=== PATIENT | female | born 1995 | race Caucasian/White ===

== ENCOUNTER 2016-08-05 17:24 | Emergency (ER) | payer OTHER ==
[2016-08-05 17:36] VITALS: RESP 16
[2016-08-05] MEDS ORDERED: LORazepam 2 MG/ML INJ IVP ONE (17:46)
[2016-08-05] MEDS ORDERED: ONDANSETRON 4 MG/2 ML VIAL IVP ONE (17:46)
[2016-08-05] MEDS ORDERED: NS 1,000 ML IV ONE ×2 (17:46)
--- NOTE | 2016-08-05 17:47 | EDPHY ---
H & P Time Seen by Provider: 08/05/16 17:34 HPI/ROS: CHIEF COMPLAINT: Nausea HISTORY OF PRESENT ILLNESS: Patient started getting sick less than an hour ago. About 30-45 minutes ago she has had severe nausea and feeling like she wants to vomit. Not associated with abdominal pain or urinary symptoms or vaginal bleeding. Associated with some chest tightness and tightness in the back of her neck and some tingling in her extremities. Symptoms are severe. REVIEW OF SYSTEMS: Eye: no change in vision ENT: no sore throat Cardiac: no chest pain or syncope Pulmonary: no cough or SOB Abdomen: HPI Musculoskeletal: no back pain Skin: no rash Neuro: no headache Constitutional: no fever : no urinary symptoms A comprehensive 10 point review of systems is otherwise negative aside from elements mentioned in the history of present illness. PAST MEDICAL HISTORY: Negative Social history: No alcohol or drugs General Appearance: Alert and conversant, cooperative. Eyes: No scleral icterus. ENT, Mouth: Normal mucous membranes. Respiratory: Normal respiratory effort, breath sounds equal, lungs are clear to auscultation. Cardiovascular: Regular rate and rhythm. Gastrointestinal: Abdomen is soft and non tender. Neurological: Alert and oriented x3. Normally conversant. Face symmetric, normal movement and sensation in all extremities. Skin: Warm and dry, no rashes. Musculoskeletal: No peripheral edema and no joint swelling. Psychiatric: Anxious, hyperventilating. Emergency Department course/MDM: Clinically likely seems to be an acute gastrointestinal illness company by hyperventilation. Zofran 4 g IV, normal saline hydration, Ativan 0.5 mg IV. 1835: Calmer no nausea. Results discussed. 2025: Feels better once discharge, I think that is reasonable. Smoking Status: Never smoked Constitutional: Initial Vital Signs Temperature (C) 36.2 C 08/05/16 17:25 Heart Rate 74 08/05/16 17:25 Respiratory Rate 16 08/05/16 17:25 Blood Pressure 121/87 H 08/05/16 17:25 O2 Sat (%) 98 08/05/16 17:25 O2 Delivery Mode Room Air Allergies/Adverse Reactions: No Known Allergies Allergy (Verified 08/05/16 17:34) Home Medications: Medication Instructions Recorded NK [No Known Home Meds] 08/11/15 Medical Decision Making - Diagnostics EKG Interpretation: 12-lead EKG interpreted by me; official reading is in trace master. My interpretation is sinus rhythm at 65 otherwise normal. Differential Diagnosis: Differential diagnosis considered for nausea and vomiting including but not limited to gastroenteritis, gastritis, appendicitis, and medication side effect. - Data Points Laboratory Results: Laboratory Results 08/05/16 17:50 08/05/16 17:50 08/05/16 08/05/16 08/05/16 17:50 17:50 17:50 WBC 10.43 10^3/uL H 10^3/uL (3.80-9.50) RBC 4.71 10^6/uL 10^6/uL (4.18-5.33) Hgb 14.3 g/dL g/dL (12.6-16.3) Hct 40.9 % % (38.0-47.0) MCV 86.8 fL fL (81.5-99.8) MCH 30.4 pg pg (27.9-34.1) MCHC 35.0 g/dL g/dL (32.4-36.7) RDW 12.6 % % (11.5-15.2) Plt Count 218 10^3/uL 10^3/uL (150-400) MPV 10.9 fL fL (8.7-11.7) Neut % (Auto) 61.1 % % (39.3-74.2) Lymph % (Auto) 30.3 % % (15.0-45.0) [place] % (Auto) 7.2 % % (4.5-13.0) Eos % (Auto) 0.7 % % (0.6-7.6) Baso % (Auto) 0.4 % % (0.3-1.7) Nucleat RBC Rel Count 0.0 % % (0.0-0.2) Absolute Neuts (auto) 6.38 10^3/uL 10^3/uL (1.70-6.50) Absolute Lymphs (auto) 3.16 10^3/uL H 10^3/uL (1.00-3.00) Absolute Monos (auto) 0.75 10^3/uL 10^3/uL (0.30-0.80) Absolute Eos (auto) 0.07 10^3/uL 10^3/uL (0.03-0.40) Absolute Basos (auto) 0.04 10^3/uL 10^3/uL (0.02-0.10) Absolute Nucleated RBC 0.00 10^3/uL 10^3/uL (0-0.01) Immature Gran % 0.3 % % (0.0-1.1) Immature Gran # 0.03 10^3/uL 10^3/uL (0.00-0.10) Sodium 138 mEq/L mEq/L (134-144) Potassium 4.1 mEq/L mEq/L (3.5-5.2) Chloride 106 mEq/L mEq/L (97-110) Carbon Dioxide 19 mEq/l L mEq/l (22-31) Anion Gap 13 mEq/L mEq/L (8-16) BUN 12 mg/dL mg/dL (7-23) Creatinine 0.7 mg/dL mg/dL (0.6-1.0) Estimated GFR > 60 Glucose 88 mg/dL mg/dL (70-100) Calcium 9.7 mg/dL mg/dL (8.5-10.4) Beta HCG, Qual NEGATIVE Medications Given: Discontinued Medications Sodium Chloride (Ns) 1,000 mls @ 0 mls/hr IV ONCE ONE PRN Reason: Wide Open Stop: 08/05/16 17:47 Last Admin: 08/05/16 17:52 Dose: 1,000 mls Sodium Chloride (Ns) 1,000 mls @ 0 mls/hr IV ONCE ONE PRN Reason: Wide Open Stop: 08/05/16 17:47 Last Admin: 08/05/16 18:36 Dose: 1,000 mls Lorazepam (Ativan Injection) 0.5 mg IVP EDNOW ONE Stop: 08/05/16 17:47 Last Admin: 08/05/16 18:01 Dose: 0.5 mg Ondansetron HCl (Zofran) 4 mg IVP EDNOW ONE Stop: 08/05/16 17:47 Last Admin: 08/05/16 18:01 Dose: 4 mg Departure - Departure Disposition: Home, Routine, Self-Care Clinical Impression: Hyperventilation Nausea & vomiting Qualifiers: Vomiting type: unspecified Vomiting Intractability: non-intractable Qualified Code(s): R11.2 - Nausea with vomiting, unspecified Condition: Good Instructions: Hyperventilation (ED), Acute Nausea and Vomiting (ED) Referrals: Jaylene Jim PA [Primary Care Provider] - As per Instructions
[2016-08-05 18:06] LABS: % IMMATURE GRANULYOCYTES 0.3 % (0.0-1.1); ABSOLUTE IMMATURE GRANULOCYTES 0.03 10^3/uL (0.00-0.10); ADD DIFF? NO; ADD MORPH? NO; ADD SCAN? NO; ATYPICAL LYMPHOCYTE FLAG 20 (0-99); FRAGMENT RBC FLAG 0 (0-99); HEMATOCRIT 40.9 % (38.0-47.0); HEMOGLOBIN 14.3 g/dL (12.6-16.3); LEFT SHIFT FLG 0 (0-99); LIPEMIA HEMOLYSIS FLAG 90 (0-99); MEAN CELL HEMOGLOBIN 30.4 pg (27.9-34.1); MEAN CELL VOLUME 86.8 fL (81.5-99.8); MEAN PLATELET VOLUME 10.9 fL (8.7-11.7); PLATELET CLUMPS FLAG 0 (0-99); PLATELET COUNT 218 10^3/uL (150-400); RED BLOOD CELL COUNT 4.71 10^6/uL (4.18-5.33); RED CELL DISTRIBUTION WIDTH 12.6 % (11.5-15.2)
[2016-08-05 18:15] LABS: ANION GAP 13 mEq/L (8-16); CALCIUM 9.7 mg/dL (8.5-10.4); CARBON DIOXIDE 19 mEq/l (22-31); CHLORIDE 106 mEq/L (97-110); CREATININE 0.7 mg/dL (0.6-1.0); GLOMERULAR FILTRATION RATE > 60; GLUCOSE 88 mg/dL (70-100); POTASSIUM 4.1 mEq/L (3.5-5.2); SODIUM 138 mEq/L (134-144)
--- NOTE | 2016-08-05 18:31 | CPEKG ---
Heart Rate: 65 RR Interval: 923 P-R Interval: 144 QRSD Interval: 74 QT Interval: 432 QTC Interval: 450 P [place]: -52 QRS [place]: 59 T Wave [place]: 23 EKG Severity - OTHERWISE NORMAL ECG - EKG Impression: SINUS OR ECTOPIC ATRIAL RHYTHM Electronically Signed By: Douglas Browning 05-Aug-2016 18:34:29
[2016-08-05] MEDS ORDERED: ONDANSETRON 4MG PREPACK#2 BTL TAKEHOME ONE ×2 (20:26→20:27)
[2016-08-05 20:54] VITALS: BP 106/54; PULSE 78; TEMP 98.3; O2SAT 95
== END 2016-08-05 20:54 | disposition home or self-care (01) ==
DX: R06.4 Hyperventilation (principal); R11.2 Nausea with vomiting, unspecified
CPT/HCPCS: 96374; J2060; J2405

== ENCOUNTER 2018-08-04 08:02 | Emergency (ER) | payer OTHER ==
--- NOTE | 2018-08-04 09:09 | EDPHY ---
H & P Stated Complaint: CP Time Seen by Provider: 08/04/18 08:54 HPI/ROS: CHIEF COMPLAINT: Left-sided chest pain radiating to left upper extremity HISTORY OF PRESENT ILLNESS: 22-year-old female presents with left-sided chest pain. She was lying in bed, awoke and noticed left-sided neck pain. The pain radiated up to her jaw and, into her left upper chest and down her left arm. She was screaming in pain and looked pale, according to her boyfriend. On EMS arrival, VS stable and she was given ketamine 15 mg IV. Symptoms have now completely resolved. No history of prior similar symptoms. No recent URI or recent injury. REVIEW OF SYSTEMS: complete 10 point ROS reviewed and is negative except for the noted elements in the HPI - Personal History LMP (Females 10-55): Unknown Current Tetanus Diphtheria and Acellular Pertussis (TDAP): Unsure - Medical/Surgical History Hx Asthma: No Hx Chronic Respiratory Disease: No Hx Diabetes: No Hx Cardiac Disease: No Hx Renal Disease: No Hx Cirrhosis: No Hx Alcoholism: No Hx HIV/AIDS: No Hx Splenectomy or Spleen Trauma: No Other PMH: Surgery: hematoma on thigh. previous opiate OD - Social History Smoking Status: Never smoked - Physical Exam Exam: General Appearance: Alert, pleasant Eyes: Pupils equal and round, no conjunctival pallor or injection ENT, Mouth: Mucous membranes moist Neck: Normal inspection, no tenderness, range of motion without pain Respiratory: Normal inspection, no chest wall tenderness, Lungs are clear to auscultation Cardiovascular: Regular rate and rhythm Gastrointestinal: Abdomen is soft and nontender Neurological: A&O, nonfocal, normal gait Skin: Warm and dry, no rash Extremities: Left upper extremity-normal inspection, range of motion without pain Vascular: 2+ radial pulses Psychiatric: Mood and affect normal Constitutional: Initial Vital Signs Temperature (C) 36.5 C 08/04/18 08:19 Heart Rate 76 08/04/18 08:19 Respiratory Rate 16 08/04/18 08:19 Blood Pressure 134/97 H 08/04/18 08:19 O2 Sat (%) 93 08/04/18 08:19 O2 Delivery Mode Room Air Allergies/Adverse Reactions: No Known Allergies Allergy (Verified 08/05/16 17:34) Home Medications: Medication Instructions Recorded NK [No Known Home Meds] 08/11/15 Medical Decision Making - Diagnostics EKG Interpretation: EKG interpretedby wa reveals NSR, nl axis/interval, no ST/T changes. Interpretation: normal EKG ED Course/Re-evaluation: This patient presents after an episode of severe left-sided chest pain, radiating to the left arm and neck, upon awakening this am. Currently asymptomatic and physical exam is normal. Stat EKG reveals no evidence of ischemia or dysrhythmia. Chest x-ray declined by the patient. Clearly understands the limitations of cp dx without CXR. Unclear etiology of sx, ? musculoskeletal, cervical radiculopathy. Will obs. Pt remained asymptomatic throughout her ED stay. PERCscore 0; can safely exclude PE. No evidence of ACS, given young age, no RF and nl EKG. Warning signs discussed. Will return for recurrent sx. F/U PCP. Differential Diagnosis: includes though not limited to ACS, PE, PTX, cervical radiculopathy, GI causes, musculoskeletal - Data Points Laboratory Results: Laboratory Results 08/04/18 08:17 08/04/18 08:17 08/04/18 08/04/18 08:17 08:17 WBC 9.94 10^3/uL H 10^3/uL (3.80-9.50) RBC 4.83 10^6/uL 10^6/uL (4.18-5.33) Hgb 14.7 g/dL g/dL (12.6-16.3) Hct 42.4 % % (38.0-47.0) MCV 87.8 fL fL (81.5-99.8) MCH 30.4 pg pg (27.9-34.1) MCHC 34.7 g/dL g/dL (32.4-36.7) RDW 12.6 % % (11.5-15.2) Plt Count 206 10^3/uL 10^3/uL (150-400) MPV 12.3 fL H fL (8.7-11.7) Neut % (Auto) 48.9 % % (39.3-74.2) Lymph % (Auto) 40.2 % % (15.0-45.0) [place] % (Auto) 9.0 % % (4.5-13.0) Eos % (Auto) 1.2 % % (0.6-7.6) Baso % (Auto) 0.5 % % (0.3-1.7) Nucleat RBC Rel Count 0.0 % % (0.0-0.2) Absolute Neuts (auto) 4.86 10^3/uL 10^3/uL (1.70-6.50) Absolute Lymphs (auto) 4.00 10^3/uL H 10^3/uL (1.00-3.00) Absolute Monos (auto) 0.89 10^3/uL H 10^3/uL (0.30-0.80) Absolute Eos (auto) 0.12 10^3/uL 10^3/uL (0.03-0.40) Absolute Basos (auto) 0.05 10^3/uL 10^3/uL (0.02-0.10) Absolute Nucleated RBC 0.00 10^3/uL 10^3/uL (0-0.01) Immature Gran % 0.2 % % (0.0-1.1) Immature Gran # 0.02 10^3/uL 10^3/uL (0.00-0.10) Sodium 141 mEq/L mEq/L (135-145) Potassium 4.2 mEq/L mEq/L (3.5-5.2) Chloride 107 mEq/L mEq/L (97-110) Carbon Dioxide 23 mEq/l mEq/l (22-31) Anion Gap 11 mEq/L mEq/L (6-14) BUN 7 mg/dL mg/dL (7-23) Creatinine 0.6 mg/dL mg/dL (0.6-1.0) Estimated GFR > 60 Glucose 77 mg/dL mg/dL (70-100) Calcium 9.4 mg/dL mg/dL (8.5-10.4) Departure - Departure Disposition: Home, Routine, Self-Care Clinical Impression: Chest pain Qualifiers: Chest pain type: unspecified Qualified Code(s): R07.9 - Chest pain, unspecified Condition: Good Instructions: Chest Pain (ED) Additional Instructions: Return for recurrent symptoms or any concerns. Referrals: Jaylene Jim PA [Primary Care Provider] - As per Instructions
[2018-08-04 09:13] LABS: PLATELET COUNT 206 10^3/uL (150-400)
[2018-08-04 10:09] VITALS: BP 107/62
--- NOTE | 2018-08-04 15:18 | CPEKG ---
Test Reason : OPEN Blood Pressure : / mmHG Vent. Rate : 071 BPM Atrial Rate : 072 BPM P-R Int : 135 ms QRS Dur : 083 ms QT Int : 433 ms P-R-T Axes : 072 074 050 degrees QTc Int : 471 ms Sinus rhythm Confirmed by Neha Park ([id number]) on 08/04/2018 3:18:00 PM Referred By: Neha Park Confirmed By:Neha Park
== END 2018-08-04 10:08 | disposition home or self-care (01) ==
LOC: EDUNIT#
DX: R07.89 Other chest pain (principal); M54.12 Radiculopathy, cervical region